=== PATIENT | female | born 1940 | race African-American/Black ===

== ENCOUNTER 2022-07-20 17:45 | Inpatient (IN) | payer MEDICARE, MEDICAID ==
[~2022-07-20] VITALS: Ht 175.3 cm; Wt 52.6 kg
[2022-07-20 21:23] LABS: HEMATOCRIT. 42.3 % (36.0-48.0); HEMOGLOBIN. 13.3 g/dL (12.0-16.0); MEAN CORPUSCULAR HEMOGLOBIN 28.6 pg (28.0-32.0); MEAN CORPUSCULAR VOLUME 90.6 fL (81.0-99.0); MEAN PLATELET VOLUME 10.3 fl (7.4-10.4); PLATELET 121 x1000/uL (130-400); RED BLOOD CELL COUNT 4.67 mill/uL (4.2-5.4); RED CELL DISTRIBUTION WIDTH 15.3 % (11.6-14.6)
[2022-07-20] MEDS ORDERED: IPRATROPIUM/ALBUTEROL 0.5-3(2.5)MG/3ML NEB NEB PRN (22:30)
[2022-07-20] MEDS ORDERED: DOCUSATE SODIUM 100MG CAPSULE PO PRN (22:30)
[2022-07-20] MEDS ORDERED: KETOROLAC 15MG/ML VIAL IV PRN (22:30)
[2022-07-20] MEDS ORDERED: ONDANSETRON HCL 4MG/2ML INJ IV PRN (22:30)
[2022-07-20] MEDS ORDERED: ACETAMINOPHEN 325MG TABLET PO PRN ×2 (22:30)
[2022-07-20] MEDS ORDERED: NA PHOS,M-B/NA PHOS,DI-BA ENEMA 118ML PR PRN (22:30)
[2022-07-20] MEDS ORDERED: GUAIFENESIN 200MG/10ML SUGAR FREE UDC PO PRN (22:30)
[2022-07-20] MEDS ORDERED: ZOLPIDEM TARTRATE 5MG TABLET PO PRN (22:30)
[2022-07-20] MEDS ORDERED: DEXTROSE 50% WATER 50ML SYRINGE IV PRN (22:30)
[2022-07-20] MEDS ORDERED: CLONIDINE 0.1MG TABLET PO PRN (22:30)
[2022-07-20] MEDS ORDERED: MAGNESIUM/ALUMINUM HYDROXIDE/SIMETHICONE 30ML UDC PO PRN (22:30)
[2022-07-20] MEDS ORDERED: ENOXAPARIN 40MG/0.4ML SYR SUBCUT SCH (22:30)
[2022-07-20] MEDS ORDERED: NITROGLYCERIN 0.4MG TABLET SL SL PRN (22:30)
[2022-07-20 22:57] LABS: PLATELET ESTIMATE SLIGHTLY DECREASED
[2022-07-21 06:19] LABS: BASOPHILS % 0.3 % (0.0-2.0); HEMATOCRIT. 37.8 % (36.0-48.0); HEMOGLOBIN. 12.5 g/dL (12.0-16.0); LYMPHOCYTES % 8.7 % (20.0-50.0); MEAN CORPUSCULAR HEMOGLOBIN 28.9 pg (28.0-32.0); MEAN CORPUSCULAR VOLUME 87.5 fL (81.0-99.0); MEAN PLATELET VOLUME 10.5 fl (7.4-10.4); MONOCYTES % 11.2 % (2.0-8.0); NEUTROPHILS % 79.8 % (40.0-76.0); PLATELET 114 x1000/uL (130-400); RED BLOOD CELL COUNT 4.32 mill/uL (4.2-5.4); RED CELL DISTRIBUTION WIDTH 14.7 % (11.6-14.6)
[2022-07-21 06:27] LABS: CHLORIDE 107 mEq/L (98-107)
[2022-07-21] MEDS: BLOOD SUGAR DIAGNOSTIC STRIP TEST SCH ×4 (06:30→21:48)
[2022-07-21 06:35] LABS: CREATINE KINASE 196 IU/L (26-192)
[2022-07-21 06:57] LABS: PHOSPHORUS 3.2 mg/dL (2.5-4.9)
[2022-07-21] MEDS ORDERED: FAMOTIDINE 20MG TABLET PO SCH (09:00)
[2022-07-21 10:20] VITALS: BP 135/92
[2022-07-21 10:30] VITALS: BP 135/73
[2022-07-21 12:00] VITALS: BP 139/77
[2022-07-21] MEDS: INSULIN LISPRO 100 UNITS/ML SUBCUT SCH ×3 (12:40→21:00)
[2022-07-21] MEDS: ZINC SULFATE 220 MG ( 50 ) CAPSULE PO SCH (13:54)
[2022-07-21] MEDS: ASPIRIN 325MG EC TABLET PO SCH (13:54)
[2022-07-21] MEDS: ASCORBIC ACID 500 MG TABLET PO SCH ×2 (13:54→21:48)
[2022-07-21 14:00] VITALS: BP 139/77
[2022-07-21 16:00] VITALS: BP 139/77
[2022-07-21 18:00] VITALS: BP 133/74
[2022-07-21] MEDS: ENOXAPARIN 30MG/0.3ML SYR SUBCUT SCH (18:46)
[2022-07-21 19:38] LABS: CLARITY URINE CLOUDY (CLEAR); COLOR URINE YELLOW (YELLOW); KETONES URINE NEGATIVE (NEGATIVE); LEUKOCYTE ESTERASE URINE 1+ (NEGATIVE); NITRITE URINE NEGATIVE (NEGATIVE); OCCULT BLOOD URINE 2+ (NEGATIVE); PROTEIN URINE 2+ (NEGATIVE); UROBILINOGEN URINE 0.2 E.U./dL (0.2-1.0)
[2022-07-22] VITALS: BP 109/57
[2022-07-22 04:00] VITALS: BP 105/54
[2022-07-22] MEDS: BLOOD SUGAR DIAGNOSTIC STRIP TEST SCH ×4 (06:01→21:44)
[2022-07-22] MEDS: INSULIN LISPRO 100 UNITS/ML SUBCUT SCH ×4 (06:01→22:08)
[2022-07-22 07:59] VITALS: BP 96/55
[2022-07-22] MEDS: ASCORBIC ACID 500 MG TABLET PO SCH (08:11)
[2022-07-22] MEDS: ASPIRIN 325MG EC TABLET PO SCH (08:11)
[2022-07-22] MEDS: ZINC SULFATE 220 MG ( 50 ) CAPSULE PO SCH (08:11)
[2022-07-22] MEDS ORDERED: SODIUM CHLORIDE 0.9% 1,000 ML IV ONE (11:00)
[2022-07-22 12:00] VITALS: BP 111/57
[2022-07-22 16:00] VITALS: BP 126/50
[2022-07-22 16:06] LABS: MEAN CORPUSCULAR HEMOGLOBIN 28.8 pg (28.0-32.0); MEAN CORPUSCULAR VOLUME 90.4 fL (81.0-99.0); PLATELET 118 x1000/uL (130-400); RED BLOOD CELL COUNT 4.54 mill/uL (4.2-5.4)
[2022-07-22] MEDS: ENOXAPARIN 30MG/0.3ML SYR SUBCUT SCH (17:09)
[2022-07-22] MEDS ORDERED: CEFTRIAXONE 1 G PREMIX 50 ML IV SCH (19:00)
[2022-07-22 19:30] LABS: CREATINE KINASE MB FRACTION 1.4 ng/mL (0.5-3.6)
[2022-07-22 20:00] VITALS: BP 109/70
[2022-07-22] MEDS: CEFTRIAXONE 1,000 MG in DEXTROSE 5% WATER 50 ML IV SCH (22:02)
[2022-07-22] MEDS: SODIUM CHLORIDE 0.9% 1,000 ML IV SCH (22:04)
[2022-07-23] VITALS (7 sets, daily range): BP systolic 100–145; BP diastolic 49–78
[2022-07-23] MEDS: ASCORBIC ACID 500 MG TABLET PO SCH ×3 (00:23→20:33)
[2022-07-23 01:02] LABS: CHLORIDE 109 mEq/L (98-107)
[2022-07-23] MEDS: SODIUM CHLORIDE 0.9% 1,000 ML IV SCH ×2 (05:00→12:56)
[2022-07-23] MEDS: BLOOD SUGAR DIAGNOSTIC STRIP TEST SCH ×4 (05:46→20:33)
[2022-07-23] MEDS: INSULIN LISPRO 100 UNITS/ML SUBCUT SCH ×4 (05:47→20:33)
[2022-07-23 07:07] LABS: HEMATOCRIT. 37.1 % (36.0-48.0); HEMOGLOBIN. 11.9 g/dL (12.0-16.0); MEAN CORPUSCULAR HEMOGLOBIN 28.4 pg (28.0-32.0); MEAN CORPUSCULAR VOLUME 88.4 fL (81.0-99.0); MEAN PLATELET VOLUME 11.1 fl (7.4-10.4); PLATELET 111 x1000/uL (130-400); RED BLOOD CELL COUNT 4.19 mill/uL (4.2-5.4); RED CELL DISTRIBUTION WIDTH 14.5 % (11.6-14.6)
[2022-07-23] MEDS: ASPIRIN 325MG EC TABLET PO SCH (08:15)
[2022-07-23] MEDS: ZINC SULFATE 220 MG ( 50 ) CAPSULE PO SCH (08:15)
[2022-07-23 14:11] LABS: PLATELET ESTIMATE DECREASED
[2022-07-23] MEDS: ENOXAPARIN 30MG/0.3ML SYR SUBCUT SCH ×2 (17:04→17:05)
[2022-07-23] MEDS: CEFTRIAXONE 1,000 MG in DEXTROSE 5% WATER 50 ML IV SCH (20:33)
[2022-07-23 20:36] LABS: CHLORIDE 110 mEq/L (98-107)
[2022-07-24] VITALS (7 sets, daily range): BP systolic 115–149; BP diastolic 58–73
[2022-07-24] MEDS: SODIUM CHLORIDE 0.9% 1,000 ML IV SCH ×2 (01:08→12:39)
[2022-07-24] MEDS ORDERED: ASPIRIN 81MG EC TABLET PO SCH (09:00)
[2022-07-24] MEDS: ZINC SULFATE 220 MG ( 50 ) CAPSULE PO SCH (09:01)
[2022-07-24] MEDS: ASCORBIC ACID 500 MG TABLET PO SCH (09:01)
[2022-07-24] MEDS ORDERED: NITR-87 MT (12:03)
[2022-07-24] MEDS: BLOOD SUGAR DIAGNOSTIC STRIP TEST SCH ×3 (12:10→17:50)
[2022-07-24] MEDS: INSULIN LISPRO 100 UNITS/ML SUBCUT SCH ×2 (12:40→17:40)
== END 2022-07-24 19:30 | disposition home health service (06) | DRG 720 ==
LOC: ER 17:45 → MICUSO 22:15 → EDBD 22:15 → SUPCPDRO 22:18 → EDBEDREQTM 22:28 → EDBEDREQSVC 22:28 → EDBEDREQ 22:28 → 8WST 07-21 10:10
PROVIDERS: ADMIT Internal Medicine; ATTEND Internal Medicine
DX: A41.50 Gram-negative sepsis, unspecified (principal); J96.00 Acute respiratory failure, unspecified whether with hypoxia or hypercapnia; I31.39 Other pericardial effusion (noninflammatory); I48.0 Paroxysmal atrial fibrillation; G90.8 Other disorders of autonomic nervous system; I69.354 Hemiplegia and hemiparesis following cerebral infarction affecting left non-dominant side; R62.7 Adult failure to thrive; I11.9 Hypertensive heart disease without heart failure; E11.9 Type 2 diabetes mellitus without complications; F03.90 Unspecified dementia, unspecified severity, without behavioral disturbance, psychotic disturbance, mood disturbance, and anxiety; N39.0 Urinary tract infection, site not specified; R29.6 Repeated falls; E78.00 Pure hypercholesterolemia, unspecified; Z91.14 Patient's other noncompliance with medication regimen; Z68.1 Body mass index [BMI] 19.9 or less, adult; Z91.199 Patient's noncompliance with other medical treatment and regimen due to unspecified reason; Z86.79 Personal history of other diseases of the circulatory system; Z87.440 Personal history of urinary (tract) infections
CPT/HCPCS: 36415; 71045; 80053; 80061; 80305; 80320; 81003; 82550; 82553; 82607; 82746; 82962; 83036; 83540; 83550; 83605; 83735; 83880; 84100; 84145; 84439; 84443; 84484; 85025; 85027; 87077; 87186; 93005; 93306; 93970; 97166; 99285; J0696; J1650; J1815; J7030; J7060; G0480

== ENCOUNTER 2022-11-18 09:44 | Inpatient (IN) | payer MEDICARE, MEDICAID ==
[~2022-11-18] VITALS: Ht 165.1 cm; Wt 35.4 kg
[~2022-11-18 09:44] MED LIST: NITR-87 MT
[2022-11-18] MEDS ORDERED: ACETAMINOPHEN 325MG TABLET PO ONE (11:45)
[2022-11-18] MEDS ORDERED: TOPUD MT (16:24)
[2022-11-18 17:07] LABS: CLARITY URINE CLOUDY (CLEAR); COLOR URINE YELLOW (YELLOW); KETONES URINE NEGATIVE (NEGATIVE); LEUKOCYTE ESTERASE URINE 1+ (NEGATIVE); NITRITE URINE NEGATIVE (NEGATIVE); OCCULT BLOOD URINE NEGATIVE (NEGATIVE); PROTEIN URINE TRACE (NEGATIVE); SPECIFIC GRAVITY URINE 1.018 (1.005-1.030)
[2022-11-18] MEDS ORDERED: CEPH500C2 MT (18:21)
[2022-11-18] MEDS ORDERED: CEFTRIAXONE 1GM PREMIX 50 ML IV ONE (18:30)
[2022-11-18] MEDS ORDERED: LORAZEPAM 2MG/ML CPJ IM ONE (23:00)
[2022-11-19] MEDS ORDERED: CEFTRIAXONE 1GM PREMIX 50 ML IV NR (00:30)
[2022-11-19 04:00] VITALS: BP 103/54
[2022-11-19] MEDS ORDERED: IPRATROPIUM/ALBUTEROL 0.5-3(2.5)MG/3ML NEB HHN PRN (09:00)
[2022-11-19] MEDS ORDERED: CEFTRIAXONE 1GM PREMIX 50 ML IV SCH (09:00)
[2022-11-19] MEDS ORDERED: CLONIDINE 0.1MG TABLET PO PRN (09:00)
[2022-11-19] MEDS ORDERED: ONDANSETRON HCL 4MG/2ML INJ IV PRN (09:00)
[2022-11-19] MEDS ORDERED: DILT180T11 MT (11:04)
[2022-11-19 17:07] LABS: BASOPHILS % 0.5 % (0.0-2.0); EOSINOPHILS % 0.9 % (0.0-5.0); HEMATOCRIT. 40.5 % (36.0-48.0); HEMOGLOBIN. 13.2 g/dL (12.0-16.0); LYMPHOCYTES % 15.9 % (20.0-50.0); MEAN CORPUSCULAR HEMOGLOBIN 28.7 pg (28.0-32.0); MEAN CORPUSCULAR VOLUME 88.2 fL (81.0-99.0); MEAN PLATELET VOLUME 10.8 fl (7.4-10.4); MONOCYTES % 6.4 % (2.0-8.0); NEUTROPHILS % 76.3 % (40.0-76.0); PLATELET 158 x1000/uL (130-400); RED BLOOD CELL COUNT 4.59 mill/uL (4.2-5.4)
[2022-11-19] MEDS: HALOPERIDOL LACTATE 5MG/ML VIAL IM PRN (20:14)
[2022-11-19] MEDS: DIPHENHYDRAMINE 50MG/ML VIAL IV PRN (20:14)
[2022-11-19] MEDS: CEFTRIAXONE 1,000 MG in DEXTROSE 5% WATER 50 ML IV SCH (22:22)
[2022-11-20] MEDS: DIPHENHYDRAMINE 50MG/ML VIAL IV PRN (02:12)
[2022-11-20] MEDS: HALOPERIDOL LACTATE 5MG/ML VIAL IM PRN ×2 (04:29→22:00)
[2022-11-20 06:54] LABS: CHLORIDE 108 mEq/L (98-107)
[2022-11-20 06:55] LABS: BASOPHILS % 0.3 % (0.0-2.0); EOSINOPHILS % 1.1 % (0.0-5.0); HEMATOCRIT. 38.1 % (36.0-48.0); HEMOGLOBIN. 12.4 g/dL (12.0-16.0); MEAN CORPUSCULAR HEMOGLOBIN 28.5 pg (28.0-32.0); MEAN CORPUSCULAR VOLUME 87.4 fL (81.0-99.0); MONOCYTES % 8.4 % (2.0-8.0); NEUTROPHILS % 69.2 % (40.0-76.0); PLATELET 155 x1000/uL (130-400); RED BLOOD CELL COUNT 4.36 mill/uL (4.2-5.4); RED CELL DISTRIBUTION WIDTH 13.8 % (11.6-14.6)
[2022-11-20 08:00] VITALS: BP 135/49
[2022-11-20 20:00] VITALS: BP 108/58
[2022-11-20] MEDS ORDERED: RISPERIDONE 1MG TABLET PO SCH (21:00)
[2022-11-20] MEDS: CEFTRIAXONE 1,000 MG in DEXTROSE 5% WATER 50 ML IV SCH (22:40)
[2022-11-21] VITALS: BP 115/64
[2022-11-21 04:00] VITALS: BP 118/61
[2022-11-21 08:00] VITALS: BP 106/58
[2022-11-21 12:00] VITALS: BP 130/64
[2022-11-21 16:00] VITALS: BP 112/57
[2022-11-21 20:00] VITALS: BP 112/54
[2022-11-22] VITALS: BP 116/57
[2022-11-22] MEDS: MEMANTINE HCL 5MG TABLET PO SCH ×3 (00:30→21:05)
[2022-11-22] MEDS: HALOPERIDOL LACTATE 5MG/ML VIAL IM PRN ×2 (03:05→11:31)
[2022-11-22 04:00] VITALS: BP 132/65
[2022-11-22] MEDS: CEFTRIAXONE 1,000 MG in DEXTROSE 5% WATER 50 ML IV SCH (04:00)
[2022-11-22 08:00] VITALS: BP 107/55
[2022-11-22] MEDS ORDERED: DILT-26 PO (10:36)
[2022-11-22] MEDS: ACETAMINOPHEN 325MG TABLET PO PRN (11:15)
[2022-11-22 12:00] VITALS: BP 126/63
[2022-11-22] MEDS ORDERED: LEVOFLOXACIN 500MG TABLET PO NR (14:00)
[2022-11-22 16:00] VITALS: BP 118/69
[2022-11-22 16:27] LABS: VITAMIN B12 SERUM 492 pg/mL (211-911)
[2022-11-23 04:00] VITALS: BP 106/64
[2022-11-23] MEDS: ACETAMINOPHEN 325MG TABLET PO PRN (06:04)
[2022-11-23 08:00] VITALS: BP 135/68
[2022-11-23] MEDS: MEMANTINE HCL 5MG TABLET PO SCH ×2 (09:13→21:56)
[2022-11-23] MEDS: LEVOFLOXACIN 250MG TABLET PO SCH (11:03)
[2022-11-23 12:00] VITALS: BP 120/57
[2022-11-23 16:00] VITALS: BP_SYST 105; BP_SYST 94; BP_DIAS 53; BP_DIAS 60
[2022-11-23 20:00] VITALS: BP 130/67
[2022-11-24] VITALS: BP 112/50
[2022-11-24 04:00] VITALS: BP 116/64
[2022-11-24 08:00] VITALS: BP 117/61
[2022-11-24] MEDS: MEMANTINE HCL 5MG TABLET PO SCH ×2 (09:16→21:00)
[2022-11-24] MEDS: ACETAMINOPHEN 325MG TABLET PO PRN (09:16)
[2022-11-24] MEDS: LEVOFLOXACIN 250MG TABLET PO SCH (09:17)
[2022-11-24] MEDS: HALOPERIDOL LACTATE 5MG/ML VIAL IM PRN ×2 (11:27→21:39)
[2022-11-24 12:00] VITALS: BP 112/60
[2022-11-24 16:00] VITALS: BP 132/71
[2022-11-25] VITALS: BP 109/58
[2022-11-25 04:00] VITALS: BP 124/65
[2022-11-25 08:00] VITALS: BP 122/58
[2022-11-25] MEDS: MEMANTINE HCL 5MG TABLET PO SCH (09:50)
[2022-11-25] MEDS: LEVOFLOXACIN 250MG TABLET PO SCH (09:50)
[2022-11-25] MEDS: ACETAMINOPHEN 325MG TABLET PO PRN (09:50)
[2022-11-25 13:59] VITALS: BP 113/65
[2022-11-25 14:00] VITALS: BP 113/65
== END 2022-11-25 14:46 | DRG 347 ==
LOC: ER 09:44 → MICUSO 19:14 → EDBEDREQTM 19:48 → EDBEDREQ 19:48 → 6EST 11-19 02:51
PROVIDERS: ADMIT Internal Medicine; ATTEND Internal Medicine
DX: M48.54XA Collapsed vertebra, not elsewhere classified, thoracic region, initial encounter for fracture (principal); I31.39 Other pericardial effusion (noninflammatory); E11.9 Type 2 diabetes mellitus without complications; J44.9 Chronic obstructive pulmonary disease, unspecified; I10 Essential (primary) hypertension; R62.7 Adult failure to thrive; E78.00 Pure hypercholesterolemia, unspecified; M41.9 Scoliosis, unspecified; N39.0 Urinary tract infection, site not specified; M85.80 Other specified disorders of bone density and structure, unspecified site; Z20.822 Contact with and (suspected) exposure to COVID-19; Z86.73 Personal history of transient ischemic attack (TIA), and cerebral infarction without residual deficits; W01.0XXA Fall on same level from slipping, tripping and stumbling without subsequent striking against object, initial encounter; Y93.89 Activity, other specified; Y92.000 Kitchen of unspecified non-institutional (private) residence as the place of occurrence of the external cause; Y99.8 Other external cause status
CPT/HCPCS: 36415; 71045; 72128; 72131; 73502; 80048; 80053; 81003; 82607; 84443; 85025; 87426; 93970; 97162; 97166; 99285; J0696; J1200; J1630; J2060; J7060

== ENCOUNTER 2024-05-31 22:06 | Inpatient (IN) | payer MEDICARE, MEDICAID ==
[~2024-05-31] VITALS: Ht 157.5 cm; Wt 34.5 kg
[~2024-05-31 22:06] MED LIST changes: +ALEN70TA79 PO; +CALC-26 PO; +CALC3.8S ONENSTRL; +CARD12 PO; +CEPH500C2 MT; +CHOL-36 PO; +DIVA-73 PO; +DIVAL250 PO; +DOCU-150 PO; +GABA-529 PO; +LIDO700A30 TOP; +METO25TA6 PO; +MIRT-89 PO; -NITR-87 MT; +QUET25TA PO; +QUET25TA36 PO; +RIVA1PAT12 TP; +RIVA1PAT3 TD; +TOPUD PO
[2024-05-31 23:48] LABS: BASOPHILS % 0.3 % (0.0-2.0); HEMATOCRIT. 38.8 % (36.0-48.0); HEMOGLOBIN. 12.7 g/dL (12.0-16.0); LYMPHOCYTES % 40.5 % (20.0-50.0); MEAN CORPUSCULAR HEMOGLOBIN 28.8 pg (28.0-32.0); MEAN CORPUSCULAR HGB CONC 32.7 g/dL (31.0-37.0); MEAN CORPUSCULAR VOLUME 88.2 fL (81.0-99.0); MEAN PLATELET VOLUME 10.1 fl (7.4-10.4); MONOCYTES % 6.2 % (2.0-8.0); PLATELET 131 x1000/uL (130-400); WHITE BLOOD COUNT 4.9 x1000/uL (4.5-11.0)
[2024-06-01] LABS: CARBON DIOXIDE 31 mEq/L (21-32); CHLORIDE 109 mEq/L (98-107); POTASSIUM 4.6 mEq/L (3.5-5.1); SODIUM 143 mEq/L (136-145)
[2024-06-01 00:01] LABS: CALCIUM 10.2 mg/dL (8.7-10.4)
[2024-06-01 00:02] LABS: CLARITY URINE CLEAR (CLEAR); COLOR URINE YELLOW (YELLOW); GLUCOSE URINE NEGATIVE (NEGATIVE); KETONES URINE NEGATIVE (NEGATIVE); LEUKOCYTE ESTERASE URINE NEGATIVE (NEGATIVE); NITRITE URINE NEGATIVE (NEGATIVE); OCCULT BLOOD URINE NEGATIVE (NEGATIVE); PROTEIN URINE NEGATIVE (NEGATIVE); SPECIFIC GRAVITY URINE 1.025 (1.005-1.030); UROBILINOGEN URINE 0.2 E.U./dL (0.2-1.0)
[2024-06-01 00:06] LABS: GLUCOSE 99 mg/dL (70-105); TROPONIN I HIGH SENSITIVITY 10 ng/L (3.0-34); UREA NITROGEN BLOOD 21 mg/dL (9-23)
[2024-06-01 00:07] LABS: ALANINE AMINOTRANSFERASE 27 IU/L (10-49); ALBUMIN 4.3 g/dL (3.2-4.8); ASPARTATE AMINOTRANSFERASE 28 IU/L (<34)
[2024-06-01 00:08] LABS: BILIRUBIN TOTAL 0.2 mg/dL (0.1-1.0); CREATINE KINASE 44 IU/L (34-145); PROTEIN TOTAL 7.6 g/dL (6.0-8.3)
[2024-06-01 00:12] LABS: BILIRUBIN DIRECT < 0.1 mg/dL (<=3.0)
[2024-06-01 00:19] LABS: PROTHROMBIN TIME 11.5 sec (9.6-11.0)
[2024-06-01] MEDS ORDERED: MAGNESIUM/ALUMINUM HYDROXIDE/SIMETHICONE 30ML UDC PO PRN (03:15)
[2024-06-01] MEDS ORDERED: CLONIDINE 0.1MG TABLET PO PRN (03:15)
[2024-06-01] MEDS ORDERED: IPRATROPIUM/ALBUTEROL 0.5-3(2.5)MG/3ML NEB HHN PRN (03:15)
[2024-06-01] MEDS ORDERED: GUAIFENESIN 200MG/10ML SUGAR FREE UDC PO PRN (03:15)
[2024-06-01] MEDS ORDERED: DOCUSATE SODIUM 100MG CAPSULE PO PRN (03:15)
[2024-06-01] MEDS ORDERED: ACETAMINOPHEN 325MG TABLET PO PRN ×2 (03:15)
[2024-06-01] MEDS ORDERED: ONDANSETRON HCL 4MG/2ML INJ IV PRN (03:15)
[2024-06-01 03:30] VITALS: BP 149/77; PULSE 73; RESP 20; TEMP 36.50292; TEMP 36.5292; O2SAT 99
[2024-06-01] MEDS ORDERED: NALOXONE HCL 0.4MG/ML VIAL IV PRN (06:15)
[2024-06-01 08:00] VITALS: BP 156/78; PULSE 71; RESP 18; TEMP 36.28068; O2SAT 98
[2024-06-01] MEDS ORDERED: AMLODIPINE 2.5MG TABLET PO NR (09:30)
[2024-06-01] MEDS: ENOXAPARIN 30MG/0.3ML SYR SUBCUT SCH (11:16)
[2024-06-01] MEDS: PANTOPRAZOLE SODIUM 40 MG/VIAL IV SCH (11:16)
[2024-06-01] MEDS: DIVALPROEX SODIUM 250MG ER TABLET PO SCH (11:16)
[2024-06-01] MEDS: RIVASTIGMINE 9.5 MG/24 HR TD SCH (11:16)
[2024-06-01] MEDS: QUETIAPINE FUMARATE 25MG TABLET PO SCH (11:17)
[2024-06-01] MEDS: LIDOCAINE 5% PATCH TOP SCH (11:18)
[2024-06-01] MEDS: METOPROLOL TARTRATE 25MG TABLET PO SCH (11:22)
[2024-06-01 12:00] VITALS: BP 121/81; PULSE 87; RESP 18; TEMP 36.28068; O2SAT 98
[2024-06-01 16:00] VITALS: BP 125/79; PULSE 18; RESP 18; TEMP 36.22512; O2SAT 98
[2024-06-01] MEDS: ACETAMINOPHEN WITH CODEINE 300/30MG TABLET PO PRN (18:02)
[2024-06-01] MEDS: MIRTAZAPINE 15MG TABLET PO SCH (20:59)
[2024-06-02] VITALS: BP 114/53; PULSE 69; RESP 20; TEMP 36.44736; O2SAT 96
[2024-06-02 04:53] VITALS: BP 151/65; PULSE 63; RESP 19; TEMP 36.44736; O2SAT 98
[2024-06-02 08:00] VITALS: BP 152/72; PULSE 62; RESP 18; TEMP 36.44736; O2SAT 98
[2024-06-02] MEDS ORDERED: AMLODIPINE 2.5MG TABLET PO SCH (09:00)
[2024-06-02 10:25] LABS: BASOPHILS % 0.5 % (0.0-2.0); DIFFERENTIAL COMMENT 0; EOSINOPHILS % 4.3 % (0.0-5.0); HEMATOCRIT. 40.9 % (36.0-48.0); HEMOGLOBIN. 12.6 g/dL (12.0-16.0); LYMPHOCYTES % 18.3 % (20.0-50.0); MEAN CORPUSCULAR HEMOGLOBIN 27.2 pg (28.0-32.0); MEAN CORPUSCULAR HGB CONC 30.8 g/dL (31.0-37.0); MEAN CORPUSCULAR VOLUME 88.5 fL (81.0-99.0); MEAN PLATELET VOLUME 11.2 fl (7.4-10.4); MONOCYTES % 8.8 % (2.0-8.0); NEUTROPHILS % 68.1 % (40.0-76.0); PLATELET 108 x1000/uL (130-400); RED BLOOD CELL COUNT 4.62 mill/uL (4.2-5.4); WHITE BLOOD COUNT 6.7 x1000/uL (4.5-11.0)
[2024-06-02 10:37] LABS: CREATINE KINASE MB FRACTION 1.8 ng/mL (0.5-3.6)
[2024-06-02 10:38] LABS: CARBON DIOXIDE 27 mEq/L (21-32); CHLORIDE 105 mEq/L (98-107); POTASSIUM 4.5 mEq/L (3.5-5.1); SODIUM 139 mEq/L (136-145)
[2024-06-02 10:39] LABS: CALCIUM 10.3 mg/dL (8.7-10.4)
[2024-06-02 10:43] LABS: CREATININE 0.7 mg/dL (0.6-1.0); GLUCOSE 83 mg/dL (70-105)
[2024-06-02 10:44] LABS: TRIGLYCERIDE 92 mg/dL (0-150); UREA NITROGEN BLOOD 16 mg/dL (9-23)
[2024-06-02 10:45] LABS: LDL CHOLESTEROL 117 mg/dL (5-100)
[2024-06-02 10:46] LABS: CHOLESTEROL 197 mg/dL (<200); HDL CHOLESTEROL 67 mg/dL (>65)
[2024-06-02 10:48] LABS: T4 FREE 1.35 ng/dL (0.89-1.76); THYROID STIMULATING HORMONE 1.54 uIU/mL (0.55-4.78)
[2024-06-02 10:49] LABS: VALPROIC ACID < 3.0 ug/mL (50-100)
[2024-06-02 11:40] VITALS: BP 154/86; PULSE 60; TEMP 97.1; O2SAT 98
[2024-06-02 11:50] LABS: VITAMIN B12 SERUM 604 pg/mL (211-911)
== END 2024-06-02 12:45 | disposition home or self-care (01) | DRG 199 ==
LOC: ER 22:06 → 7EST 06-01 01:05 → EDBEDREQTM 06-01 01:30 → EDBEDREQ 06-01 01:30 → EDBEDREQDT 06-01 01:30
PROVIDERS: ADMIT Internal Medicine Geriatric Medicine; ATTEND Internal Medicine Geriatric Medicine
DX: I16.0 Hypertensive urgency (principal); I67.1 Cerebral aneurysm, nonruptured; E44.1 Mild protein-calorie malnutrition; G93.89 Other specified disorders of brain; R62.7 Adult failure to thrive; F03.918 Unspecified dementia, unspecified severity, with other behavioral disturbance; E11.9 Type 2 diabetes mellitus without complications; G89.4 Chronic pain syndrome; I10 Essential (primary) hypertension; Z68.1 Body mass index [BMI] 19.9 or less, adult; E78.00 Pure hypercholesterolemia, unspecified; Z87.442 Personal history of urinary calculi; R32 Unspecified urinary incontinence; M81.0 Age-related osteoporosis without current pathological fracture; M48.50XA Collapsed vertebra, not elsewhere classified, site unspecified, initial encounter for fracture; I69.30 Unspecified sequelae of cerebral infarction
CPT/HCPCS: 36415; 71045; 80048; 80061; 80076; 80165; 81003; 82550; 82553; 82607; 83036; 84439; 84443; 84484; 85025; 93005; 99291; J1650; J2470